=== PATIENT | female | born 1945 | race Caucasian/White ===

== ENCOUNTER 2016-07-12 11:35 | Outpatient (CLI) | payer OTHER | END 2016-07-12 11:36 | disposition home or self-care (01) | LOC: AMBL 11:35 | PROVIDERS: ATTEND Emergency Medicine | DX: M25.552 Pain in left hip (principal); M25.511 Pain in right shoulder; M25.562 Pain in left knee; W01.0XXA Fall on same level from slipping, tripping and stumbling without subsequent striking against object, initial encounter ==

== ENCOUNTER 2016-07-13 04:38 | Outpatient (CLI) | payer OTHER ==
[2016-07-14 00:34] VITALS: BMI 25.7
== END 2016-07-13 04:39 | disposition home or self-care (01) ==
LOC: AMBL 04:38
PROVIDERS: ATTEND Family Medicine
DX: M54.5 Low back pain (principal); R29.6 Repeated falls; W19.XXXA Unspecified fall, initial encounter

== ENCOUNTER 2016-07-13 04:55 | Emergency (ER) | payer OTHER ==
[2016-07-13 05:24] VITALS: BP 130/86; TEMP 98.4; BMI 25.7
--- NOTE | 2016-07-13 05:50 | CT ---
Exam: CT of the pelvis without contrast History: Fall with injury and pain Technique: [address] of the bony pelvis with multiplanar reformations FINDINGS: The pelvic ring is intact. The femoral hips are intact. Mild, symmetric bilateral hip o steoarthritic change the bones are overall demineralized. Prior lumbar surgery. Prior ventral abdo sherry repair with mesh in place. No acute pelvic visceral abnormalities are seen. Prior hysterecto my. Impression: 1. No acute findings of the bony pelvis or pelvic viscera.
--- NOTE | 2016-07-13 05:54 | CT ---
Exam: CT lumbar spine without contrast History: Fall with injury and pain Technique: [address] lumbar spine with multiplanar reformations FINDINGS: The lumbar spine shows normal alignment. vertebral body height is maintained. Prior fus ion L3 - L5. Multilevel endplate concavity deformities unchanged from 09/11/2013. Lumbar hardware is intact without evidence of loosening or olga-hardware fracture. The sacrum is intact. No immedi ate paravertebral soft tissue abnormalities. Atherosclerotic calcification of the aorta. There is a incidental 8 cm right renal cyst. Impression: 1. No acute abnormality of the lumbar spine 2. Multilevel endplate insufficiency concavity deformities are unchanged from 09/11/2013.
--- NOTE | 2016-07-13 06:17 | ED.PDOC ---
General ED Provider: Dr. SHILPA LAIRD-ER Chief Complaint: Fall Stated Complaint: i fell--my kacey raymond Time Seen by Physician: 05:15 Mode of Arrival: Ambulance Information Source: Patient Exam Limitations: No limitations Primary Care Provider: Joaquín MELARA Nursing and Triage Documentation Reviewed and Agree: Yes Musculoskeletal Complaint Exam - Back Pain Complaint/Exam Mechanism of Injury: Reports: Trauma Onset/Duration: one hour Symptoms Are: Still present Timing: Constant Episodes Lasting: Minutes Initial Severity: Mild Current Severity: Mild Location: Reports: Discrete (lumbar spine) Character: Reports: Dull, Aching Aggravating: Reports: Movements, Lifting, Bending, Walking Alleviating: Reports: None Associated Signs and Symptoms: Denies: Swelling, Redness, Bruising, Fever, Weakness, Numbness, Tingling, Abdominal pain, Flank pain, Bladder incontinence, Bowel incontinence, Weight loss, Pain with weight bearing Related History: Reports: Previous back injury Focal Tenderness: Yes Paraspinal Muscle Tenderness: Yes Paraspinal Muscle Spasm: No Scoliosis: No Lordosis: No Kyphosis: No SLR Test: Right Negative, Left Negative Hip Motion Testing Pain: Right Negative, Left Negative Focal Weakness: Present: None Focal Sensory Loss: Present: None Gait: Present: Abnormal Differential Diagnoses: Fracture, Herniated Disk Review of Systems - Review Of Systems Constitutional: Reports: No symptoms Eyes: Reports: No symptoms Ears, Nose, Mouth, Throat: Reports: No symptoms Respiratory: Reports: No symptoms Cardiac: Reports: No symptoms GI: Reports: No symptoms : Reports: No symptoms Musculoskeletal: Reports: Back pain Skin: Reports: No symptoms Neurological: Reports: No symptoms Endocrine: Reports: No symptoms Hematologic/Lymphatic: Reports: No symptoms All Other Systems: Reviewed and Negative Past Medical History - Past Medical History Previously Healthy: No Endocrine: Reports: None Cardiovascular: Reports: Hypertension Respiratory: Reports: None Hematological: Reports: None Gastrointestinal: Reports: None Genitourinary: Reports: None Neuro/Psych: Reports: None Musculoskeletal: Reports: Arthritis, Back Pain Cancer: Reports: None Last Menstrual Period: PT HAS HAD HYSTERECTOMY - Surgical History General Surgical History: Reports: None - Family History Family History: Reports: None - Social History Smoking Status: Never smoker Hx Substance Use: No Alcohol Screening: None Lives: With family - Immunizations Tetanus Shot up to Date: Yes Physical Exam - Physical Exam Appearance: Well-appearing, No pain distress, Well-nourished Pain Distress: Mild Eyes: KAYLEEN, EOMI, Conjunctiva clear ENT: Ears normal, Nose normal, Oropharynx normal Neck: Supple Respiratory: Airway patent, Breath sounds clear, Breath sounds equal, Respirations nonlabored Cardiovascular: RRR, Pulses normal, No rub, No murmur GI/: Soft, Nontender, No masses, Bowel sounds normal, No Organomegaly Musculoskeletal: Limited ROM Skin: Warm, Dry, Normal color Neurological: Sensation intact, Motor intact, Reflexes intact, Cranial nerves intact, Alert, Oriented Psychiatric: Affect appropriate Interpretation - Radiology Interpretation Radiology Interpretation By: Radiologist Radiology Results: Negative Exam Interpreted: CT Scan Re-Evaluation - Re-Evaluation Time of Re-Evaluation: 06:17 Status: Improved Vital Signs Stable: Yes Pain Level: 1 Appearance: NAD Lungs: Clear Skin: Warm and Dry Neuro: Alert and Oriented X3 CV: RRR Critical Care Note - Critical Care Note Total Time (mins): 0 Course - Course Orders, Labs, Meds: Orders Category Date Time Status CT LUMBAR SPINE W/O CONTRAST Stat RADS 07/13/16 05:[address] PELVIS W/O CONTRAST Stat RADS 07/13/16 05:01 Completed Vital Signs: Temp Pulse Resp BP Pulse Ox 07/13/16 04:56 98.4 F 84 20 130/86 95 Departure - Departure Time of Disposition: 06:17 Disposition: HOME SELF-CARE Discharge Problem: Low back pain Qualifiers: Chronicity: unspecified Back pain laterality: unspecified Sciatica presence: without sciatica Qualifier Code: (M54.5) Low back pain Instructions: Back Pain (ED) Condition: Good Pt referred to PMD for follow-up: Yes Additional Instructions: f/u wit pcp Allergies/Adverse Reactions: Allergies heparin Allergy (Severe, Unverified 05/24/16 15:25) fever codeine Adverse Reaction (Verified 01/29/15 13:31) lisinopril Adverse Reaction (Verified 01/29/15 13:31) Sulfa (Sulfonamide Antibiotics) Adverse Reaction (Verified 07/13/16 05:24) Home Medications: Ambulatory Orders Calcium Carbonate [Calcium] 600 mg PO BID 01/29/15 Carvedilol 12.5 mg PO BID 01/29/15 Diazepam 5 mg PO Q6HR PRN 01/29/15 Escitalopram Oxalate [Lexapro] 10 mg PO DAILY 01/29/15 Losartan Potassium [Cozaar] 50 mg PO DAILY 01/29/15 Oxycodone-Acetaminophen 10-325 [Percocet 10-325] 1 tab PO Q6H PRN 01/29/15 Disposition Discussed With: Patient
== END 2016-07-13 07:49 | disposition home or self-care (01) ==
LOC: ED 04:55
DX: M54.5 Low back pain (principal); W19.XXXA Unspecified fall, initial encounter
CPT/HCPCS: 99283

== ENCOUNTER 2016-07-13 18:13 | Inpatient (IN) | payer OTHER ==
--- NOTE | 2016-07-13 20:49 | ED.PDOC ---
General ED Provider: Dr. JEANETTE LUNDY Chief Complaint: Knee Pain/Injury Stated Complaint: Patient is a 71 year old female who Fell yesterday and was seen at [facility] ER for pain to left knee, rt arm (Hx rotator cuff surg), face. He was Sent home then fell again this morning landing on her bottom and had to be seen in the ER and Discharged home. She was taken to her PMD Dr Mathews at [facility] who told her and family to return to the ER for admission prior to [place] admission for rehab.She states she has severe left hip, Lower back right knee and right shoulder pain. She lives alone and unabel to care for self and is very weak. Time Seen by Physician: 20:45 Mode of Arrival: Wheelchair Information Source: Patient, Family Exam Limitations: No limitations Primary Care Provider: MARKIE HOLT Seen Within Last 72 Hours for Same Complaint By: ED (This morning and last night at [facility]. ) Nursing and Triage Documentation Reviewed and Agree: Yes Review of Systems - Review Of Systems Constitutional: Reports: Weakness Eyes: Reports: No symptoms Ears, Nose, Mouth, Throat: Reports: No symptoms Respiratory: Reports: No symptoms Cardiac: Reports: No symptoms GI: Reports: No symptoms : Reports: No symptoms Musculoskeletal: Reports: Back pain, Joint pain (Left shoulder, Left knee ), Muscle pain, Muscle stiffness Skin: Reports: Bruising Neurological: Reports: Anxiety Endocrine: Reports: No symptoms Hematologic/Lymphatic: Reports: No symptoms All Other Systems: Reviewed and Negative Past Medical History - Past Medical History Previously Healthy: No Endocrine: Reports: None Cardiovascular: Reports: Hypertension Respiratory: Reports: None Hematological: Reports: None Gastrointestinal: Reports: None Genitourinary: Reports: None Neuro/Psych: Reports: None Musculoskeletal: Reports: Arthritis, Back Pain Cancer: Reports: None Last Menstrual Period: unknown - Surgical History General Surgical History: Reports: Pacemaker, Orthopedic (Right knee and Right shoulder replacement.), Back Surgery - Family History Family History: Reports: None - Social History Smoking Status: Never smoker Hx Substance Use: No Alcohol Screening: None Physical Exam - Physical Exam Appearance: Ill-appearing Ill-appearing: Mild Pain Distress: Severe Eyes: KAYLEEN, EOMI, Conjunctiva clear ENT: Ears normal, Nose normal, Oropharynx normal Neck: Supple Respiratory: Airway patent, Breath sounds clear, Breath sounds equal, Respirations nonlabored Cardiovascular: RRR, Pulses normal, No rub, No murmur GI/: Soft, Nontender, No masses, Bowel sounds normal, No Organomegaly Musculoskeletal: Limited ROM (on the left Knee and right shoulder ) Skin: Warm, Dry, Normal color Neurological: Sensation intact, Motor intact, Reflexes intact, Cranial nerves intact, Alert, Oriented Interpretation - Radiology Interpretation Radiology Interpretation By: Radiologist Radiology Results: Negative Exam Interpreted: Portable CXR, CT Scan (atrophy) - EKG Interpretation Time of EKG #1: 22:28 Interpretation: Electronic Paced Rhytym Re-Evaluation - Re-Evaluation Time of Re-Evaluation: 22:18 Vital Signs Stable: Yes (BP 112/55) Physician Notification - Case Discussed Physician Notified: Dr May Time of Notification: 22:15 (Get CT head and Chest x ray and Orthostatics and call before admission. ) Physician Notified: Dr May Time of Notification: 23:30 (Ok to admit ) Critical Care Note - Critical Care Note Total Time (mins): 0 Course - Course Hematology/Chemistry: 07/13/16 20:55 07/13/16 20:55 Orders, Labs, Meds: Lab Review 07/13/16 07/13/16 07/13/16 20:55 21:00 21:04 WBC 2.94 L RBC 3.75 L Hgb 11.7 L Hct 34.9 L MCV 93.1 MCH 31.2 H MCHC 33.5 RDW Coeff of Trudy 15.2 H Plt Count 57 L Immature Gran % (Auto) 0.3 Neut % (Auto) 50.7 Lymph % (Auto) 32.7 Grady % (Auto) 12.9 H Eos % (Auto) 3.1 Baso % (Auto) 0.3 Immature Gran # (Auto) 0.0 Neut # 1.5 L Lymph # 1.0 Grady # 0.4 Eos # 0.1 Baso # 0.0 Sodium 141 Potassium 4.1 Chloride 109 H Carbon Dioxide 25 Anion Gap 11.1 BUN 14 Creatinine 0.92 Estimated GFR (MDRD) 60.00 BUN/Creatinine Ratio 15.21 Glucose 99 Calcium 9.5 Total Bilirubin 0.82 AST 24 ALT 19 Alkaline Phosphatase 53 Total Creatine Kinase 52 Troponin I 0.0170 Total Protein 6.3 Albumin 3.1 L Globulin 3.2 Albumin/Globulin Ratio 0.97 Urine Color Yellow Urine Clarity Clear Urine pH 5.0 Ur Specific [place] 1.025 Urine Protein Negative Urine Glucose (UA) Negative Urine Ketones Negative Urine Blood Negative Urine Nitrite Negative Urine Bilirubin Negative Urine Urobilinogen 1.0 Ur Leukocyte Esterase Trace Urine Microscopic RBC 2-5 Urine Microscopic WBC 0-2 Ur Squamous Epith Cells 2-5 Hyaline Casts 2-5 Urine Mucus Trace Orders Category Date Time Status ADMIT PATIENT INPATIENT .TO MEDSURG (MONITORED BED) ADMISSION 07/13/16 22: 19 Active EKG-(IP & OP ONLY) Routine CARDIO 07/13/16 22:24 Completed ACTIVITY .BR with BRP CARE 07/13/16 22:21 Active CASE MANAGEMENT CONSULT ONCE CARE 07/13/16 22:19 Active INTAKE & OUTPUT Q8HR CARE 07/13/16 22:19 Active TELEMETRY MONITORING TELE CARE 07/13/16 22:20 Active VITAL SIGNS Q4HR CARE 07/13/16 22:20 Active REGULAR DIET DIETARY 07/13/16 Breakfast Ordered ED IV/MEDIPORT/POWERPORT .ONCE EMERGENCY 07/13/16 20:49 Active Orthostatic Vital Signs [ED ORTHOSTATIC VITAL SIGNS] 2- EMERGENCY 07/13/16 22: 14 Active 4XD BASIC METABOLIC PANEL DAILY@0600 LAB 07/14/16 06:00 Ordered BASIC METABOLIC PANEL DAILY@0600 LAB 07/15/16 06:00 Ordered BASIC METABOLIC PANEL DAILY@0600 LAB 07/16/16 06:00 Ordered BASIC METABOLIC PANEL DAILY@0600 LAB 07/17/16 06:00 Ordered BASIC METABOLIC PANEL DAILY@0600 LAB 07/18/16 06:00 Ordered BASIC METABOLIC PANEL DAILY@0600 LAB 07/19/16 06:00 Ordered BASIC METABOLIC PANEL DAILY@0600 LAB 07/20/16 06:00 Ordered BASIC METABOLIC PANEL DAILY@0600 LAB 07/21/16 06:00 Ordered BASIC METABOLIC PANEL DAILY@0600 LAB 07/22/16 06:00 Ordered BASIC METABOLIC PANEL DAILY@0600 LAB 07/23/16 06:00 Ordered BASIC METABOLIC PANEL DAILY@0600 LAB 07/24/16 06:00 Ordered BASIC METABOLIC PANEL DAILY@0600 LAB 07/25/16 06:00 Ordered BASIC METABOLIC PANEL DAILY@0600 LAB 07/26/16 06:00 Ordered BASIC METABOLIC PANEL DAILY@0600 LAB 07/27/16 06:00 Ordered BASIC METABOLIC PANEL DAILY@0600 LAB 07/28/16 06:00 Ordered BASIC METABOLIC PANEL DAILY@0600 LAB 07/29/16 06:00 Ordered BASIC METABOLIC PANEL DAILY@0600 LAB 07/30/16 06:00 Ordered BASIC METABOLIC PANEL DAILY@0600 LAB 07/31/16 06:00 Ordered BASIC METABOLIC PANEL DAILY@0600 LAB 08/01/16 06:00 Ordered BASIC METABOLIC PANEL DAILY@0600 LAB 08/02/16 06:00 Ordered CBC W/ AUTO DIFF DAILY@0600 LAB 07/14/16 06:00 Ordered CBC W/ AUTO DIFF DAILY@0600 LAB 07/15/16 06:00 Ordered CBC W/ AUTO DIFF DAILY@0600 LAB 07/16/16 06:00 Ordered CBC W/ AUTO DIFF DAILY@0600 LAB 07/17/16 06:00 Ordered CBC W/ AUTO DIFF DAILY@0600 LAB 07/18/16 06:00 Ordered CBC W/ AUTO DIFF DAILY@0600 LAB 07/19/16 06:00 Ordered CBC W/ AUTO DIFF DAILY@0600 LAB 07/20/16 06:00 Ordered CBC W/ AUTO DIFF DAILY@0600 LAB 07/21/16 06:00 Ordered CBC W/ AUTO DIFF DAILY@0600 LAB 07/22/16 06:00 Ordered CBC W/ AUTO DIFF DAILY@0600 LAB 07/23/16 06:00 Ordered CBC W/ AUTO DIFF DAILY@0600 LAB 07/24/16 06:00 Ordered CBC W/ AUTO DIFF DAILY@0600 LAB 07/25/16 06:00 Ordered CBC W/ AUTO DIFF DAILY@0600 LAB 07/26/16 06:00 Ordered CBC W/ AUTO DIFF DAILY@0600 LAB 07/27/16 06:00 Ordered CBC W/ AUTO DIFF DAILY@0600 LAB 07/28/16 06:00 Ordered CBC W/ AUTO DIFF DAILY@0600 LAB 07/29/16 06:00 Ordered CBC W/ AUTO DIFF DAILY@0600 LAB 07/30/16 06:00 Ordered CBC W/ AUTO DIFF DAILY@0600 LAB 07/31/16 06:00 Ordered CBC W/ AUTO DIFF DAILY@0600 LAB 08/01/16 06:00 Ordered CBC W/ AUTO DIFF DAILY@0600 LAB 08/02/16 06:00 Ordered CBC W/ AUTO DIFF Stat LAB 07/13/16 20:55 Completed CK [CREATINE KINASE] Stat LAB 07/13/16 21:00 Completed COMPREHENSIVE METABOLIC PANEL Stat LAB 07/13/16 20:55 Completed TROPONIN I Stat LAB 07/13/16 21:00 Completed URINALYSIS C & S IF INDICATED Stat LAB 07/13/16 21:04 Completed 0.9 % Sodium Chloride [Saline Flush] MEDS 07/13/16 20:49 Ordered 1 syr IVF PRN PRN Calcium Carbonate [Calcium] MEDS 07/14/16 09:00 Ordered 600 mg PO BID Carvedilol [Coreg] MEDS 07/14/16 09:00 Ordered 3.125 mg PO BID Diazepam [Valium] MEDS 07/14/16 09:00 Ordered 2 mg PO BID Enoxaparin Sodium [Lovenox] MEDS 07/14/16 09:00 Ordered 40 mg SUBCUT DAILY Escitalopram Oxalate [Lexapro] MEDS 07/14/16 09:00 Ordered 10 mg PO DAILY Hydrocodone Bit/Acetaminophen [[place] 5-325] MEDS 07/13/16 22:25 Ordered DOSE tab PO TID PRN Hydroxychloroquine Sulfate MEDS 07/14/16 09:00 Ordered 200 mg PO BID Morphine Sulfate [Morphine 2 mg/ml Syringe] MEDS 07/13/16 22:19 Ordered 2 mg IVP Q4H PRN Ondansetron HCl/Pf [Zofran 4 mg/2 ml] MEDS 07/13/16 22:19 Ordered 4 mg IVP Q6H PRN Sodium Chloride 0.9% [Sodium Chloride] 1,000 ml MEDS 07/13/16 22:30 Ordered IV 75 mls/hr RESUSCITATION STATUS Routine OTHERS 07/13/16 22:19 Ordered CHEST, 1V AP ONLY Stat RADS 07/13/16 22:[address] HEAD W/O CONTRAST Stat RADS 07/13/16 22:17 Completed OT CONSULTATION Routine THERAPIES 07/13/16 Ordered PT CONSULT Routine THERAPIES 07/13/16 Ordered Medications Generic Name Dose Route Start Last Admin Trade Name Freq PRN Reason Stop Dose Admin Acetaminophen/Hydrocodone Bitart tab 07/13/16 22:25 [place] 5-325 PO TID PRN MODERATE PAIN Carvedilol 3.125 mg 07/14/16 09:00 Coreg PO BID ANNETTE Diazepam 2 mg 07/14/16 09:00 Valium PO BID ANNETTE Enoxaparin Sodium 40 mg 07/14/16 09:00 Lovenox SUBCUT DAILY [facility] Escitalopram Oxalate 10 mg 07/14/16 09:00 Lexapro PO DAILY [facility] Sodium Chloride 1,000 mls @ 75 mls/hr 07/13/16 22:30 Sodium Chloride IV .[id number] ANNETTE Morphine Sulfate 2 mg 07/13/16 22:19 Morphine 2 Mg/Ml Syringe IVP Q4H PRN Severe Pain Non-Formulary Medication 200 mg 07/14/16 09:00 Hydroxychloroquine Sulfate PO BID ANNETTE Non-Formulary Medication 600 mg 07/14/16 09:00 Calcium Carbonate [Calcium] PO BID [facility] Ondansetron HCl 4 mg 07/13/16 22:19 Zofran 4 Mg/2 Ml IVP Q6H PRN Nausea / Vomiting Sodium Chloride 1 syr 07/13/16 20:49 Saline Flush IVF PRN PRN To flush IV Vital Signs: Temp Pulse Resp BP Pulse Ox 07/13/16 22:21 103/58 L 07/13/16 18:16 98.2 F 79 20 93/59 L 95 Departure - Departure Time of Disposition: 23:30 Disposition: HOME SELF-CARE Discharge Problem: Knee pain, Weakness generalized Falls Qualifiers: Encounter type: initial encounter Qualifier Code: (W19.XXXA) Unspecified fall, initial encounter Shoulder pain, right Qualifiers: Chronicity: acute Qualifier Code: (M25.511) Pain in right shoulder Condition: Fair Pt referred to PMD for follow-up: No (Admitted ) Allergies/Adverse Reactions: Allergies heparin Allergy (Severe, Unverified 05/24/16 15:25) fever codeine Adverse Reaction (Verified 01/29/15 13:31) lisinopril Adverse Reaction (Verified 01/29/15 13:31) Sulfa (Sulfonamide Antibiotics) Adverse Reaction (Verified 07/13/16 05:24) Home Medications: Ambulatory Orders Calcium Carbonate [Calcium] 600 mg PO BID 01/29/15 Carvedilol 3.125 mg PO BID 01/29/15 Escitalopram Oxalate [Lexapro] 10 mg PO DAILY 01/29/15 Losartan Potassium [Cozaar] 50 mg PO BID 01/29/15 Amitriptyline HCl 10 mg PO QPM 07/13/16 Diazepam 2 mg PO BID 07/13/16 Furosemide [Lasix] 20 mg PO DAILY 07/13/16 Hydrocodone Bit/Acetaminophen [[place] 5-325] 5 - 325 mg PO TID PRN 07/13/16 Hydroxychloroquine Sulfate [Plaquenil] 200 mg PO BID 07/13/16 Hydroxyzine HCl 25 mg PO DAILY PRN 07/13/16 Spironolactone 12.5 mg PO DAILY 07/13/16 Disposition Discussed With: Patient, Family
[2016-07-13 21:02] LABS: BASOPHILS % (AUTO) 0.3 % (0.0-3.0); EOSINOPHILS # (AUTO) 0.1 K/ul (0.0-0.7); EOSINOPHILS % (AUTO) 3.1 % (0.0-7.0); HEMATOCRIT 34.9 % (37.0-47.0); HEMOGLOBIN 11.7 g/dl (12.0-16.0); IMMATURE GRANULOCYTE % (AUTO) 0.3 % (0.0-5.0); LYMPHOCYTES % (AUTO) 32.7 (10.0-50.0); MEAN CORPUSCULAR HEMOGLOBIN 31.2 pg (27.0-31.0); MEAN CORPUSCULAR HGB CONC 33.5 (31.8-35.4); MEAN CORPUSCULAR VOLUME 93.1 fl (81.0-99.0); MONOCYTES # (AUTO) 0.4 K/uL (0.4-2.0); MONOCYTES % (AUTO) 12.9 (0-10); NEUTROPHILS # (AUTO) 1.5 K/ul (2.0-6.9); NEUTROPHILS % (AUTO) 50.7; PLATELET COUNT 57 10^3/uL (140-440); RED BLOOD COUNT 3.75 10^6/ul (4.20-5.40); WHITE BLOOD COUNT 2.94 K/ul (4.6-10.2)
[2016-07-13 21:09] LABS: BILIRUBIN,URINE Negative (NEGATIVE); KETONES,URINE Negative (NEGATIVE); LEUKOCYTE ESTERASE ,URINE Trace (NEGATIVE); NITRITE,URINE Negative (NEGATIVE); PROTEIN,URINE Negative (NEGATIVE); URINE, BLOOD Negative (NEGATIVE)
[2016-07-13 21:10] LABS: ADD URINE MICROSCOPIC YES
[2016-07-13 21:22] LABS: ALBUMIN 3.1 g/dL (3.4-5.0); ALBUMIN/GLOBULIN RATIO 0.97; ANION GAP 11.1; BILIRUBIN,TOTAL 0.82 mg/dL (0.00-1.20); BUN/CREATININE RATIO 15.21; CALCIUM 9.5 mg/dL (8.2-10.2); CREATININE 0.92 mg/dL (0.60-1.30); POTASSIUM 4.1 mmol/L (3.5-5.10); TOTAL PROTEIN 6.3 g/dL (5.8-8.1)
[2016-07-13] MEDS ORDERED: MORPHINE 2 MG/ML SYRINGE IVP PRN (22:19)
[2016-07-13] MEDS ORDERED: ZOFRAN 4 MG/2 ML IVP PRN (22:19)
[2016-07-13] MEDS ORDERED: SODIUM CHLORIDE 1,000 ML IV SCH (22:30)
--- NOTE | 2016-07-13 22:53 | DI ---
EXAM: Chest, single view, 07/13/2016 HISTORY: Fall COMPARISON: 04/06/2016 FINDINGS / IMPRESSION: Left-sided pacer device is in place. Right shoulder arthroplasty is in plac e. Cardiomediastinal contours appear moderately enlarged. There is no focal pulmonary consolidation. No pneumothorax. Blunting of the left lateral costophre hilda angle may be due to atelectasis and/or small pleural effusion. The visualized osseous structures appear grossly intact.
[2016-07-13 22:58] LABS: TROPONIN I 0.017 ng/ml (0.0000-0.4000)
--- NOTE | 2016-07-13 23:22 | CT ---
EXAM: CT scan brain without contrast HISTORY: Fall COMPARISON: None. FINDINGS: Contiguous axial images obtained from the skull base to the convexities without contrast utilizing 5-mm collimation. Sagittal and coronal reconstructions were imaged reviewed.. The ventri cles and CSF spaces are prominent by with age appropriate atrophy. There is periventricular hypoden sity noted compatible with chronic microvascular disease.. Visualized paranasal sinuses and mastoid air cells are clear. Atherosclerotic changes are seen involving internal carotids at the level of the cavernous sinus. IMPRESSION: Age appropriate atrophy with chronic microvascular disease. ASVD.
[2016-07-14 00:34] VITALS: BMI 25.7
[2016-07-14 07:13] LABS: BASOPHILS % (AUTO) 0.9 % (0.0-3.0); EOSINOPHILS # (AUTO) 0.1 K/ul (0.0-0.7); EOSINOPHILS % (AUTO) 3.3 % (0.0-7.0); HEMATOCRIT 31.1 % (37.0-47.0); HEMOGLOBIN 10.4 g/dl (12.0-16.0); IMMATURE GRANULOCYTE % (AUTO) 0.5 % (0.0-5.0); LYMPHOCYTES # (AUTO) 0.9 K/uL (0.60-3.4); LYMPHOCYTES % (AUTO) 40.8 (10.0-50.0); MEAN CORPUSCULAR HEMOGLOBIN 31.2 pg (27.0-31.0); MEAN CORPUSCULAR HGB CONC 33.4 (31.8-35.4); MEAN CORPUSCULAR VOLUME 93.4 fl (81.0-99.0); MONOCYTES # (AUTO) 0.3 K/uL (0.4-2.0); MONOCYTES % (AUTO) 13.7 (0-10); NEUTROPHILS # (AUTO) 0.9 K/ul (2.0-6.9); NEUTROPHILS % (AUTO) 40.8; PLATELET COUNT 52 10^3/uL (140-440); RED BLOOD COUNT 3.33 10^6/ul (4.20-5.40); WHITE BLOOD COUNT 2.11 K/ul (4.6-10.2)
[2016-07-14 07:27] LABS: ANION GAP 9.9; BUN/CREATININE RATIO 18.18; CALCIUM 8.9 mg/dL (8.2-10.2); CREATININE 0.77 mg/dL (0.60-1.30); POTASSIUM 3.9 mmol/L (3.5-5.10)
[2016-07-14] MEDS ORDERED: NON-FORMULARY MEDICATION (Hydroxychloroquine Sulfate 200 MG) PO SCH (09:00)
[2016-07-14] MEDS ORDERED: NON-FORMULARY MEDICATION (Calcium Carbonate [Calcium] 600 MG) PO SCH ×22 (09:00)
[2016-07-14] MEDS ORDERED: COREG PO SCH (09:00)
[2016-07-14] MEDS: CALCIUM 500 + VIT D 200 MG TABLET PO SCH ×2 (09:04→21:10)
[2016-07-14] MEDS: COREG PO SCH ×2 (09:05→21:10)
[2016-07-14] MEDS: LEXAPRO PO SCH (09:05)
[2016-07-14] MEDS: LOVENOX SUBCUT SCH (09:05)
[2016-07-14] MEDS: PLAQUENIL PO SCH ×2 (09:05→21:09)
[2016-07-14] MEDS: VALIUM PO SCH ×2 (09:05→21:09)
--- NOTE | 2016-07-14 10:34 | RS.OTINEVL ---
Subjective - Patient information Date of Evaluation: 07/14/16 Date of Arrival on Unit: 07/13/16 Admitted From:: Home Usual Living Arrangement: Alone Living Arrangement Comments: Pt reports she just moved to [facility] apartments and lives with her dog Whiskers. Home Environment: Apartment Medical History: Arthritis, Cancer Medical History Comments:: Rheumatoid, osteoarthritis Surgical History Comments:: Pacemaker, Right shoulder surgery Subjective Information/ Patient Comments:: "This is the first time I have been able to walk on this knee." "It is so swollen and painful." - Level of function Prior to this admission, the patient could do the following:: Independent Selfcare, Independent ADL's Abilities prior to this admission: Pt was walking with her walker, transfering to chair. Pt was living at home with her dog alone. Current Level of Function: Partially Dependent Current Equipment Used at Home: rollator, straight cane Pain Assessment - Pain Pain Score: 8 Side: left Pain Location Body Site: Knee Pain Aggravating Factors: ADL's, Changing Position, Exercise/Activity, Standing , Walking Pain Alleviating Factors: Ice, Medication, Exercise Interventions - Objective Patient Orientation: Person, Place, Situation Current Interventions: IV's Observation: Pt has RA and muscle weakness that is limiting her safety of mobility. Pt uses a rolling walker to ambulate. Pt has kojo of left knee and a bruise to the Right side of her head. Interventions - ROM Right Upper Extremity AROM: Marked limitation Left Upper Extremity AROM: Marked limitation - Strength Right Upper Extremity Strength: Mild Weakness Left Upper Extremity Strength: Mild Weakness - Sensation Right Upper Extremity Sensation: Intact/Normal Left Upper Extremity Sensation: Intact/Normal Balance - Sitting Balance Static Sitting Balance: Good Dynamic Sitting Balance: Fair - Standing Balance Static Standing Balance: Poor Dynamic Standing Balance: Poor - Comments Balance Assessment Comments: Pt has had numerous falls and weakness. Patient walks with a rolling walker at all times. ADL Skills - Self Feeding Self Feeding: Independent - Grooming Grooming: Min Assist - Bathing Bathing LE: Max Assist - Dressing Dressing UE: Independent Dressing LE: Max Assist - Toilet Management Toileting Management: Min Assist Functional Mobility - Bed Mobility Rolling R/L: CGA Scooting: CGA Supine to Sit: CGA Sit to Supine: Min Assist - Transfers Sit to Stand: Min Assist Stand to Sit: CGA Stand Pivot Transfers: Min Assist - Ambulation Weight Bearing Status: FWB Assistive Device Used: Rolling Walker Assistance needed with Ambulation: Min Assist Comments:: Pt wearging a Left knee brace. - Safety Awareness Safety Awareness: Fair Additional Treatment Performed - Additional units charged ADL: 15 - Time with patient Total treatment time: 25 Activities Patient Interests:: Visiting/Socializing Patient Education Patient Education: Body/Joint mechanics, Home Exercise Program, Home Safety, Education of Plan of Care Teaching Recipient: Patient Teaching Methods: Discussion Assessment Problem List:: Decreased level of function, Requires training/education, Weakness, Pain limits previous level of function Rehab Potential: Good Further Therapy Indicated?: Yes Short Term Goals - Goals GOAL 1: Pt to increase standing ADLS to 10 minutes with rests PRN. Goal to be met by: 07/21/16 GOAL 2: Pt to increase BUE strength to 4-/5. Goal to be met by: 07/21/16 GOAL 3: Pt to be Minimal assist with bathing. Goal to be met by: 07/21/16 Handbook Writer Goals GOAL 1: Pt to tolerate standing ADLS 15-20 minutes. Goal to be met by: 07/28/16 GOAL 2: Pt to increase BUE strength to 4/5. Goal to be met by: 07/28/16 GOAL 3: Pt to be mod-Ind. with bathing. Goal to be met by: 07/28/16 Plan Plan of Care: Therapeutic EX, Neuromuscular Re-Educ, Therapeutic Activity, Self- Care/Home Management Frequency of Treatment: 1-2 X day, as tolerated Duration of Treatment: 2 Weeks Anticipated Discharge Destination: Home
[2016-07-14] MEDS: INFUVITE ADULT 10 ML in D5%-1/4NS-KCL 20 MEQ/L IV SOL 1,000 ML IV SCH ×2 (12:23→23:36)
--- NOTE | 2016-07-14 15:45 | CT ---
EXAM: CT left knee without contra HISTORY: Knee pain COMPARISON: None TECHNIQUE: CT left knee performed without intravenous contrast. Coronal and sagittal reformatted i mages obtained. FINDINGS: There is large lipohemarthrosis. The bones are markedly demineralized. There is a nondis placed lucency in the lateral tibial spine region, best seen axial image 54 and coronal image 39, mo st consistent with nondisplaced fracture. There are tricompartmental osteophytes. There is severe n arrowing of the medial compartment and mild to moderate narrowing of the lateral compartment. There is well marginated ossification near the medial compartment may be due to old trauma or degenerative . There is atherosclerosis. IMPRESSION: 1. Nondisplaced fracture of the lateral aspect tibial plateau. 2. Large lipohemarthrosis. 3. 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 4. Markedly demineralized bones.
--- NOTE | 2016-07-14 15:53 | US ---
Examination: Moreno-scale and color Doppler imaging performed in real time of the left lower extremit y venous vasculature. Comparison: None available. Reason for study: Left knee swelling. FINDINGS: There is spontaneous flow with respiratory augmentation and vascular compression seen in the left common femoral, greater saphenous, profunda, superficial femoral, popliteal, peroneal, post erior tibial, and anterior tibial veins. Impression: No ultrasonographic evidence of deep venous thrombosis in the left lower extremity.
[2016-07-14] MEDS ORDERED: INFUVITE ADULT IV ONE (22:12)
[2016-07-14] MEDS: NORCO 5-325 PO PRN (22:19)
[2016-07-15] MEDS: INFUVITE ADULT 10 ML in D5%-1/4NS-KCL 20 MEQ/L IV SOL 1,000 ML IV SCH ×2 (00:44→12:58)
[2016-07-15 07:37] LABS: BASOPHILS % (AUTO) 0.6 % (0.0-3.0); EOSINOPHILS # (AUTO) 0.1 K/ul (0.0-0.7); EOSINOPHILS % (AUTO) 4.3 % (0.0-7.0); HEMATOCRIT 29.2 % (37.0-47.0); HEMOGLOBIN 9.7 g/dl (12.0-16.0); IMMATURE GRANULOCYTE % (AUTO) 0.6 % (0.0-5.0); LYMPHOCYTES # (AUTO) 0.8 K/uL (0.60-3.4); LYMPHOCYTES % (AUTO) 48.5 (10.0-50.0); MEAN CORPUSCULAR HEMOGLOBIN 31.1 pg (27.0-31.0); MEAN CORPUSCULAR HGB CONC 33.2 (31.8-35.4); MEAN CORPUSCULAR VOLUME 93.6 fl (81.0-99.0); MONOCYTES # (AUTO) 0.2 K/uL (0.4-2.0); MONOCYTES % (AUTO) 12.9 (0-10); NEUTROPHILS # (AUTO) 0.5 K/ul (2.0-6.9); NEUTROPHILS % (AUTO) 33.1; PLATELET COUNT 51 10^3/uL (140-440); RED BLOOD COUNT 3.12 10^6/ul (4.20-5.40)
[2016-07-15 07:54] LABS: WHITE BLOOD COUNT 1.63 K/ul (4.6-10.2)
[2016-07-15 08:02] LABS: ANION GAP 9.4; BUN/CREATININE RATIO 15.78; CREATININE 0.76 mg/dL (0.60-1.30); POTASSIUM 4.4 mmol/L (3.5-5.10)
[2016-07-15] MEDS: CALCIUM 500 + VIT D 200 MG TABLET PO SCH ×2 (10:12→20:13)
[2016-07-15] MEDS: LOVENOX SUBCUT SCH (10:13)
[2016-07-15] MEDS: LEXAPRO PO SCH (10:13)
[2016-07-15] MEDS: COREG PO SCH ×2 (10:13→20:13)
[2016-07-15] MEDS: PLAQUENIL PO SCH ×2 (10:14→20:13)
[2016-07-15] MEDS: VALIUM PO SCH ×2 (10:15→20:13)
[2016-07-15] MEDS: NORCO 5-325 PO PRN (11:00)
[2016-07-15] MEDS ORDERED: INFUVITE ADULT IV ONE (12:43)
[2016-07-15 18:14] VITALS: BP 126/77; TEMP 97.9
--- NOTE | 2016-07-17 15:25 | PN ---
DATE OF VISIT: 07/15/16 The patient today is alert, pale, but no respiratory distress. NECK: No masses. No bruit. LEGS: Markedly edematous on the left side, including the knee and markedly tender to touch. LUNGS: Still has diminished breath sounds in both sides with rales at the bases. HEART: Audible and regular most of the time. ABDOMEN: Slightly protuberant, tympanitic. Bowel sounds are active. No masses palpable. X-ray of the left knee has shown a tibial plateau fracture, lateral, nondisplaced. This patient had several operations, knee, right shoulder, back and trying to find the names of the doctors who had operated. This patient also had pancytopenia on admission and progressed. The patient seemed to have a history of chronic anemia. I am not certain whether this patient has a myelodysplastic syndrome or a leukemia. MTDD
--- NOTE | 2016-07-17 15:27 | PN ---
DATE OF VISIT: 07/14/16 The patient is alert and responsive. She has movement of all extremities. She is slightly pale, but not dyspneic, nor tachypneic. LUNGS: She does have rales at the bases with no wheezing. HEART: Audible and and irregular. This patient has a pacemaker. She had previous lumbar surgery, as well as left shoulder surgery fo a rotator cuff problem. The operation may have been done at [facility]. I had a conversation with her son and he is not sure which hospital and the name of the doctor. He promised that he would try to find out who the doctor was and where. I told him that I would like to know those particulars so I can call the doctor and refer her to them. She does have a fracture involving the left knee. I had reviewed the imaging studies done at [facility]. There was no fracture demonstrated, but there was a question about the left knee. The CT done at this facility showed a nondisplaced fracture of the left lateral aspect of the tibial plateau. A large amount of lipohemarthrosis and tricompartmental osteoarthritis with severe osteoarthritis in the medial compartment. Bones markedly demineralized. Venous Doppler studies of the left lower extremity showed no venous thrombosis. Vitamin D level was requested and no results at this time. [facility]
--- NOTE | 2016-07-18 10:34 | HP ---
CHIEF COMPLAINT: Weakness, pain in the left knee and fall times two. SOURCE OF HISTORY: Patient. HISTORY OF PRESENT ILLNESS: The patient claimed that last Sunday about 9 o' clock or there about was trying to put her pants on while sitting on the couch. She slid and rolled over and landed flat on her face from the couch. She was then brought to [facility] emergency room and the work up of consisted of x -rays, chest x-ray, CT scan of the left lower extremity and Ct scan of the cervical spine. The left knee showed moderate hemarthrosis, no definite fracture, tricompartmental osteoarthritic changes and severe osteoporosis with a small amount of subcutaneous emphysema at the tibial plateau anteriorly. Correlate with self injury. The patient was discharged from [facility] to home. The patient lives alone and on 07/13/16, early in the morning about 4 o'clock, trying to get to the bedside commode, she tried four times to get up on the walker and finally did. The patient, however, when trying to get to the commode fell to the floor and landed on her buttock. She was then seen at [facility] emergency room and had x-rays of the pelvis and lumbar spine and was discharged to home. She came back to [facility] emergency room the same day that she was discharged 4:16 in the afternoon of . The emergency room physician contacted me with regards to the patient needing an admission because of weakness. He advised me that x-rays done at this facility earlier, as well as at [facility] did not show any fracture, but he did not do any x-rays of his own. I did advise him to have an x-ray of the chest, as well as CT scan of the head. He did not tell me anything about the physical findings. The reason for admission is weakness and recurrent falls at home and the patient lives alone. The doctor at the emergency room had not mentioned any other abnormal work-up that he had. The patient was then admitted. PAST PERSONAL HISTORY: The patient had a right breast carcinoma and was operated with mastectomy and treated by Dr. Rodríguez. She had been to Dr. Dorsey, Complaint Supervisor in [place], but her pacemaker was inserted by [employer] in [place]. She was known to have anemia and also a low platelet count and had been treated by her family physician, Dr. Hill in [place]. Atrial fibrillation treated with medication, plus a pacemaker, probably defibrillator. Other medical problems consisted of GERD, depression, anxiety, migraine, osteoarthritis. She had a right knee replacement and right shoulder replacement. She mentioned some fractured bones. FAMILY HISTORY: The patient does not know very much about her father's illnesses. Mother was hypertensive. SOCIAL HISTORY: The patient is and resides alone. She never did smoke in her life. Her primary provider is Bria Hill. No alcoholic beverages. MEDICATIONS: Prior to this admission Carvedilol 3.125 mg twice a day Calcium 600 mg twice a day Losartan 50 mg twice a day Lexapro 10 mg daily Hydroxyzine 25 mg daily Plaquenil 200 mg twice a day Amitriptyline 10 mg in the evening Aldactone 12.5 mg daily Lasix 20 mg daily Diazepam 2 mg twice a day Hydrocodone/APAP 5/325 mg one three times a day ALLERGIES: Heparin, Codeine, Lisinopril, Sulfa. REVIEW OF SYSTEMS: CONSTITUTIONAL: We have a 71 year old female who looks older than her chronological age denies any fever or chills, but has some fatigue. She more or less has some generalized weakness. URGENT CARE PHYSICIAN ASSISTANT: This patient has a history of migraines, but does not have any. She had fallen twice in the last three days. She denies any seizure disorder. VISUAL: Denies any double vision, or blurred vision or transient loss of vision. AUDITORY: The patient has diminished hearing, but is able to hear and answer questions correctly. She denies any ringing of the ears or any pain or drainage. RESPIRATORY: The patient has no significant cough and denies any hemoptysis and no shortness of breath at rest. CARDIOVASCULAR: The patient denies any chest pain or chest oppression. GASTROINTESTINAL: The patient denies any nausea or anorexia. Appetite seems to be maintained. GENITOURINARY: Denies any burning on urination. MUSCULOSKELETAL: The patient has pain, mostly in the left knee. The left leg is edematous and the left knee is tender. The patient also has some lumbar pain. She had previous surgery to the lumbar spine. Right knee has no swelling. ENDOCRINE: Negative. HEMATOLOGIC: The patient denies any prolonged bleeding history. The patient, however, is known to be anemic, as well as a low platelet count. The duration of this problem is unknown. We do not have any records from the family physician, as well as records from the previous Bonding Machine Operator/Oncologist, Dr. Rodríguez. PSYCHIATRIC: Affect appears to be normal. PHYSICAL EXAMINATION: GENERAL: We have a 71 year old female who looks older than her chronological age. She is alert, oriented and answers questions correctly. Not dyspneic, nor tachypneic, but pale. HEAD: Unremarkable. FACE: Symmetrical and equal with no cyanosis and no facial weakness. There is no remarkable tenderness to palpation under pressure on the frontal or maxillary sinus areas. EYES: Pupils equal/reactive to light. Conjunctivae not pale. Sclerae not icteric. MOUTH: Unremarkable. THROAT: No inflammation, tumors or exudate. NECK: No masses. No bruit. No tenderness. No rigidity. CHEST: Asymmetrical with the absence of the right breast. No significant tenderness to palpation. LUNGS: Breath sounds are diminished in both sides with rales at the bases. No expiratory wheezing. HEART: Audible and regular, probably pacemaker driven. No murmurs. ABDOMEN: Slightly protuberant, tympanitic, soft with active bowel sounds. No bruit. LOWER EXTREMITIES: The left leg is edematous including the left knee. Anterior tibials are present, but the posterior tibials are absent. UPPER EXTREMITIES: Symmetrical and equal. ASSESSMENT: 1. PANCYTOPENIA, SEVERE 2. RECURRENT FALLS TIME TWO, SUNDAY AND WEDNESDAY 07/12 AND 07/13/16, RESPECTIVELY 3. MARKEDLY SWOLLEN LEFT LOWER EXTREMITY WITH PAIN IN LEFT KNEE 4. HISTORY OF ANEMIA AND THROMBOCYTOPENIA 5. HISTORY OF BREAST CARCINOMA, RIGHT 6. HISTORY OF ATRIAL FIBRILLATION WITH A PERMANENT PACER 7. HISTORY OF RIGHT TOTAL KNEE REPLACEMENT 8. HISTORY OF RIGHT SHOULDER REPLACEMENT 9. HISTORY OF GERD 10. HISTORY OF MIGRAINES 11. HISTORY OF DEPRESSION 12. HISTORY OF OSTEOARTHRITIS 13. HISTORY OF ANXIETY 14. HISTORY OF LUMBAR DISC DISEASE, POST SURGERY MTDD
--- NOTE | 2016-07-18 11:04 | DS ---
PATIENT IDENTIFICATION: 71 year old female was admitted to [facility] after a fall. She fell 07/12/16 about 9 a.m. She was trying to put her trousers on and slid from her couch and rolled over and landed face down. She was sent at [facility] emergency room and imaging studies were done. It included CT scan of the left lower extremity showing a hemarthrosis of the left knee. Chest x-ray with some chronic changes, but nothing acute and cervical spine CT showing no fracture. She was seen at [facility] ER 07/13/16 after she landed on her buttocks and had x-rays of the pelvis and lumbar spine, CT and both were negative and was then discharged. She came back on 07/13/16 in the evening hours at [facility] emergency room. Emergency room physician did call me with regards to this patient and wanting admission. He had not done any work-up , except a CBC and chemistry. There were no other x-rays. I did ask for a CT of the head, just to make sure that there is not any subdural hematoma from two days ago. HOSPITAL COURSE: This patient was getting IV fluids and electrolytes. The patient's stamina had improved, but her pancytopenia has progressed downwards. Her absolute neutrophil is 500. I discussed the case with the oncologist who took over Dr. Rodríguez and Dr. Renteria. His name is Dr. Chapa. He told me that if I could not transfer the patient tonight that he will see the patient Sunday at the office. I tried to talk to [facility] and Tamanna answered and connected me to Dr. Oshea and discussed the case and they accepted the patient to his services and this patient will be transferred to [facility] under his services. The son, Mr. Chauhan, was notified with regards to the transfer and also the patient was advised about the transfer. I had talked to the son earlier and did advise him that I am looking for a place to transfer his mother. The patient's vital signs were stable at the time of transfer and she was alert and oriented and not dyspneic, nor tachypneic. LUNGS: Still has diminished breath sounds in both sides and still has rales at the bases with no wheezing. HEART: Mostly normal sinus rhythm. ABDOMEN: Soft and somewhat protuberant, nontender. LOWER EXTREMITIES: The left leg is smaller than yesterday. The anterior tibials are still palpable. The patient will be transferred via ambulance to [facility] under Dr. Oshea' s services. FINAL DIAGNOSES: 1. LEFT LATERAL TIBIAL PLATEAU FRACTURE KNEE 2. 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 HISTORY OF ATRIAL FIBRILLATION WITH A PACEMAKER 4. HISTORY OF LUMBAR SURGERY 5. HISTORY OF RIGHT TOTAL KNEE REPLACEMENT 6. HISTORY OF ANEMIA AND THROMBOCYTOPENIA MANAGED BY PRIMARY PROVIDER ACCORDING TO THE SON 7. RIGHT SHOULDER REPLACEMENT BY HISTORY 8. HISTORY OF DEPRESSION AND ANXIETY 9. HISTORY OF GERD MTDD
== END 2016-07-15 20:23 | disposition short-term general hospital (02) | DRG 563 ==
LOC: ED 18:13 → MEDSURG B 23:29
PROVIDERS: ADMIT General Practice; ATTEND General Practice
DX: S82.145A Nondisplaced bicondylar fracture of left tibia, initial encounter for closed fracture (principal); D61.818 Other pancytopenia; C94.6 Myelodysplastic disease, not elsewhere classified; C95.90 Leukemia, unspecified not having achieved remission; D64.9 Anemia, unspecified; I48.91 Unspecified atrial fibrillation; R60.0 Localized edema; D69.6 Thrombocytopenia, unspecified; M54.5 Low back pain; R53.1 Weakness; M25.511 Pain in right shoulder; M17.12 Unilateral primary osteoarthritis, left knee; I67.2 Cerebral atherosclerosis; R29.6 Repeated falls; F41.8 Other specified anxiety disorders; K21.9 Gastro-esophageal reflux disease without esophagitis; W19.XXXA Unspecified fall, initial encounter; Z95.0 Presence of cardiac pacemaker; Z96.651 Presence of right artificial knee joint; Z96.611 Presence of right artificial shoulder joint; Z79.899 Other long term (current) drug therapy
CPT/HCPCS: 36415; 80048; 80053; 81001; 82550; 82652; 83880; 84484; 85025; 93005; 93010; 99223; 99232; 99239; 99283; 99284

== ENCOUNTER 2016-07-15 20:25 | Outpatient (CLI) ==
[2016-07-14 00:34] VITALS: BMI 25.7
== END 2016-07-15 20:26 | disposition home or self-care (01) ==
LOC: AMBL 20:25
PROVIDERS: ATTEND Emergency Medicine
DX: S82.142A Displaced bicondylar fracture of left tibia, initial encounter for closed fracture (principal); D61.818 Other pancytopenia; R29.6 Repeated falls; W19.XXXA Unspecified fall, initial encounter

== ENCOUNTER 2016-08-18 16:06 | Emergency (ER) ==
[2016-08-18 16:18] VITALS: TEMP 98.4; BMI 25.4
[2016-08-18 16:41] LABS: BASOPHILS % (AUTO) 0.6 % (0.0-3.0); HEMATOCRIT 33.6 % (37.0-47.0); HEMOGLOBIN 11.2 g/dl (12.0-16.0); LYMPHOCYTES # (AUTO) 0.9 K/uL (0.60-3.4); MEAN CORPUSCULAR HEMOGLOBIN 30.4 pg (27.0-31.0); MEAN CORPUSCULAR HGB CONC 33.3 (31.8-35.4); MEAN CORPUSCULAR VOLUME 91.1 fl (81.0-99.0); MONOCYTES # (AUTO) 0.2 K/uL (0.4-2.0); MONOCYTES % (AUTO) 9.1 (0-10); NEUTROPHILS # (AUTO) 0.7 K/ul (2.0-6.9); NEUTROPHILS % (AUTO) 38.3; PLATELET COUNT 50 10^3/uL (140-440); RED BLOOD COUNT 3.69 10^6/ul (4.20-5.40)
--- NOTE | 2016-08-18 16:47 | DI ---
EXAM: Single frontal view of the chest HISTORY: Cough. COMPARISON: Chest x-ray 07/13/2069 FINDINGS: Cardiomediastinal silhouette is unchanged and mildly enlarged with stable cardiac lead wir es. There is no pneumothorax. There is minimal blunting the costophrenic angles and stable mild el evation of left hemidiaphragm. The osseous structures demonstrate right shoulder arthroplasty. IMPRESSION: 1. No acute cardiopulmonary process with stable elevation of the left hemidiaphragm. 2. No change in mild cardiomegaly and right shoulder arthroplasty.
[2016-08-18 16:49] LABS: WHITE BLOOD COUNT 1.75 K/ul (4.6-10.2)
[2016-08-18 16:59] LABS: ALBUMIN 3.1 g/dL (3.4-5.0); ALBUMIN/GLOBULIN RATIO 0.84; ANION GAP 11.9; BILIRUBIN,TOTAL 0.43 mg/dL (0.00-1.20); BUN/CREATININE RATIO 12.5; CALCIUM 9.4 mg/dL (8.2-10.2); CREATININE 1.2 mg/dL (0.60-1.30); POTASSIUM 3.9 mmol/L (3.5-5.10); TOTAL PROTEIN 6.8 g/dL (5.8-8.1)
--- NOTE | 2016-08-18 17:29 | ED.PDOC ---
General ED Provider: Dr. 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 Symptoms Are: Still present Episodes Lasting: Seconds Initial Severity: Mild Current Severity: Mild Location of Pain: no Associated Signs and Symptoms: Denies: Decreased responsiveness, Confusion, Agitation, Dizziness, Weakness, Syncope, Headache, Short of air, Cough, Wheezing , Hemoptysis, Chest pain, Palpitations, Edema, Nausea, Vomiting, Diarrhea, Abdominal pain, Back pain, Dysuria, Hematemesis, Melena, Decreased oral intake, Fever, Diaphoresis, Immunocompromised, Anticoagulation Therapy, Recent medication changes, 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 Quality Indicators for AMI: EKG in 10min. Review of Systems - Review Of Systems Constitutional: Reports: No symptoms Eyes: Reports: No symptoms Ears, Nose, Mouth, Throat: Reports: No symptoms Respiratory: Reports: No symptoms Cardiac: Reports: No symptoms GI: Reports: No symptoms : Reports: No symptoms Musculoskeletal: Reports: No symptoms Skin: Reports: No symptoms Neurological: Reports: No symptoms Endocrine: Reports: No symptoms Hematologic/Lymphatic: Reports: No symptoms All Other Systems: Reviewed and Negative Past Medical History - Past Medical History Previously Healthy: No Endocrine: Reports: None Cardiovascular: Reports: Hypertension Respiratory: Reports: None Hematological: Reports: None Gastrointestinal: Reports: None Genitourinary: Reports: None Neuro/Psych: Reports: None Musculoskeletal: Reports: Arthritis, Back Pain Cancer: Reports: None Last Menstrual Period: unknow - Surgical History General Surgical History: Reports: Pacemaker, Orthopedic (Right knee and Right shoulder replacement.), Back Surgery - Family History Family History: Reports: None - Social History Smoking Status: Never smoker Hx Substance Use: No Alcohol Screening: None - Immunizations Tetanus Shot up to Date: No Physical Exam - Physical Exam Appearance: Well-appearing, No pain distress, Well-nourished Eyes: KAYLEEN, EOMI, Conjunctiva clear ENT: Ears normal, Nose normal, Oropharynx normal Respiratory: Airway patent, Breath sounds clear, Breath sounds equal, Respirations nonlabored Cardiovascular: RRR, Pulses normal, No rub, No murmur GI/: Soft, Nontender, No masses, Bowel sounds normal, No Organomegaly Musculoskeletal: Normal strength, ROM intact, No edema, No calf tenderness Skin: Warm, Dry, Normal color Neurological: Sensation intact, Motor intact, Reflexes intact, Cranial nerves intact, Alert, Oriented Psychiatric: Affect appropriate, Mood appropriate Critical Care Note - Critical Care Note Total Time (mins): 0 Course - Course Hematology/Chemistry: 08/18/16 16:24 08/18/16 16:24 Orders, Labs, Meds: Lab Review 08/18/16 16:24 WBC 1.75 L* RBC 3.69 L Hgb 11.2 L Hct 33.6 L MCV 91.1 MCH 30.4 MCHC 33.3 RDW Coeff of Trudy 13.9 Plt Count 50 L Immature Gran % (Auto) 0.0 Neut % (Auto) 38.3 Lymph % (Auto) 52.0 H [place] % (Auto) 9.1 Eos % (Auto) 0.0 Baso % (Auto) 0.6 Immature Gran # (Auto) 0.0 Neut # 0.7 L Lymph # 0.9 [place] # 0.2 L Eos # 0.0 Baso # 0.0 Sodium 139 Potassium 3.9 Chloride 107 Carbon Dioxide 24 Anion Gap 11.9 BUN 15 Creatinine 1.20 Estimated GFR (MDRD) 44.00 BUN/Creatinine Ratio 12.50 Glucose 93 Lactic Acid 19.0 Calcium 9.4 Total Bilirubin 0.43 AST 27 ALT 18 Alkaline Phosphatase 89 Total Protein 6.8 Albumin 3.1 L Globulin 3.7 Albumin/Globulin Ratio 0.84 Orders Category Date Time Status EKG-(ED ONLY) Stat CARDIO 08/18/16 16:30 Completed BLOOD CULTURE Stat LAB 08/18/16 16:24 Received CBC W/ AUTO DIFF Stat LAB 03/03/17 16:24 Completed COMPREHENSIVE METABOLIC PANEL Stat LAB 08/18/16 16:24 Completed LACTIC ACID Stat LAB 08/18/16 16:24 Completed CHEST, 1V AP ONLY Stat RADS 08/18/16 16:09 Completed Vital Signs: Temp Pulse Resp BP Pulse Ox 08/18/16 16:12 98.4 F 76 20 92/56 L 100 Departure - Departure Time of Disposition: 17:29 (in june her WBC WAS EVER LOWER , PANCYTOPENIA DISCUSSED WITH PT STRESSED HEMATLOGIST FOLLOW UP) Disposition: HOME SELF-CARE Discharge Problem: Pancytopenia Instructions: Anemia (ED), Neutropenia (ED), Thrombocytopenia (ED) Condition: Good Pt referred to PMD for follow-up: No Additional Instructions: Please call your Family Physician as soon as possible to schedule a follow-up appointment. YOU HAVE EVIDENCE OF BONE MARROW FAILURE . THIS MAY BE DUE TO CANCER OTHER SERIOUS DISEASES YOU MUST SEE YOUR DOCTOR SOON POSSIBLE. IF YOU PUT THIS OFF YOU CAN SERIOUSLY GET ILL OR EVEN PLEASE SEE YOUR DOCTOR SOON POSSIBLE Allergies/Adverse Reactions: Allergies heparin Allergy (Severe, Verified 08/18/16 16:29) fever codeine Adverse Reaction (Verified 08/18/16 16:29) lisinopril Adverse Reaction (Verified 08/18/16 16:29) Sulfa (Sulfonamide Antibiotics) Adverse Reaction (Verified 08/18/16 16:29) Home Medications: Ambulatory Orders Carvedilol 3.125 mg PO BID 01/29/15 Escitalopram Oxalate [Lexapro] 10 mg PO BEDTIME 01/29/15 Losartan Potassium [Cozaar] 50 mg PO BID 01/29/15 Amitriptyline HCl 10 mg PO QPM 07/13/16 Diazepam 2 mg PO BID 07/13/16 Furosemide [Lasix] 20 mg PO DAILY 07/13/16 Hydrocodone Bit/Acetaminophen [[place] 5-325] 5 - 325 mg PO TID PRN 07/13/16 Hydroxychloroquine Sulfate [Plaquenil] 200 mg PO BID 07/13/16 Hydroxyzine HCl 25 mg PO DAILY PRN 07/13/16 Spironolactone 12.5 mg PO DAILY 07/13/16 Folic Acid 1 mg PO DAILY 08/18/16 Methotrexate Sodium [Methotrexate] 2.5 mg PO DAILY 08/18/16
[2016-08-18 17:35] VITALS: BP 104/68
== END 2016-08-18 18:37 | disposition home or self-care (01) ==
LOC: ED 16:06
DX: D61.818 Other pancytopenia (principal); D64.9 Anemia, unspecified; D70.9 Neutropenia, unspecified; D69.6 Thrombocytopenia, unspecified; Z95.0 Presence of cardiac pacemaker; Z79.899 Other long term (current) drug therapy
CPT/HCPCS: 36415; 80053; 83605; 85025; 87040; 93005; 93010; 99283

== ENCOUNTER 2016-09-21 15:53 | Outpatient (CLI) ==
--- NOTE | 2016-09-21 17:05 | DEXA ---
EXAM: DEXA scan. HISTORY: Osteoporosis. COMPARISON: 02/12/2013. TECHNIQUE: [employer] [id number]. DEXA scan hips performed. Quality of the study is good. BMD is 0.514 grams per square centimeter. T-score -3.9. Z-score -2.3. DEXA scan lumbar spine not performed due to prior surgery. IMPRESSION: According to the World Health Organization classification, hip bone mineral density demonstrates ost eoporosis, with high fracture risk. Ten-year major osteoporotic fracture risk is 39.3%. Ten-year h ip fracture risk is 16%. Since the prior study, hip mineralization has decreased.
== END 2016-09-21 15:54 | disposition home or self-care (01) ==
LOC: RAD 15:53
PROVIDERS: ATTEND Family Medicine
DX: M81.0 Age-related osteoporosis without current pathological fracture (principal)

== ENCOUNTER 2016-09-29 08:51 | Outpatient (CLI) | payer OTHER ==
[2016-09-29] MEDS: VENOFER 200 MG in SODIUM CHLORIDE 100 ML IV ONE (10:15)
[2016-09-29 10:38] LABS: CREATININE 0.96 mg/dL (0.60-1.30)
[2016-09-29 11:44] VITALS: BP 106/66; TEMP 98
[2016-09-29] MEDS: RECLAST 5 MG/100 ML SOLUTION 5 MG in PREMIX INFUSION 100 ML VIAL 1 VIAL IV ONE (11:45)
== END 2016-09-29 08:52 | disposition home or self-care (01) ==
LOC: OPMED 08:51
PROVIDERS: ATTEND Family Medicine
DX: N18.3 Chronic kidney disease, stage 3 (moderate) (principal); D63.1 Anemia in chronic kidney disease; M81.0 Age-related osteoporosis without current pathological fracture
CPT/HCPCS: 36415; 82310; 82565; 84520; 96365; 96367

== ENCOUNTER 2016-11-02 04:38 | Outpatient (CLI) | payer OTHER | END 2016-11-02 04:39 | disposition home or self-care (01) | LOC: AMBL 04:38 | PROVIDERS: ATTEND Family Medicine | DX: R53.1 Weakness (principal); W19.XXXA Unspecified fall, initial encounter ==

== ENCOUNTER 2017-01-28 11:22 | Emergency (ER) ==
[2017-01-28 11:34] VITALS: BP 134/77; TEMP 97.8; BMI 25.9
[2017-01-28] MEDS ORDERED: BENADRYL IM STA (11:47)
[2017-01-28] MEDS ORDERED: DECADRON 4 MG/ML SDV IM STA (11:47)
--- NOTE | 2017-01-28 11:49 | ED.PDOC ---
General ED Provider: Dr. LILLIE SHELTON Chief Complaint: Rash Stated Complaint: rash puritic Time Seen by Physician: 11:30 Mode of Arrival: Walk-In Information Source: Patient Exam Limitations: No limitations Primary Care Provider: MARKIE HOLT Nursing and Triage Documentation Reviewed and Agree: Yes Skin Complaint Exam - Skin Rash/Itching Complaint/Exam Symptoms Are: Still present Initial Severity: Mild Current Severity: Mild Potential Exposures: Reports: Unknown Aggravating: Reports: None Alleviating: Reports: None Associated Signs and Symptoms: Denies: Difficulty breathing, Fever, Chills Related History: Similar episode Skin Findings: Present: Maculae, Papules Differential Diagnoses: Allergic Reaction Review of Systems - Review Of Systems Constitutional: Reports: No symptoms Eyes: Reports: No symptoms Ears, Nose, Mouth, Throat: Reports: No symptoms Respiratory: Reports: No symptoms Cardiac: Reports: No symptoms GI: Reports: No symptoms : Reports: No symptoms Musculoskeletal: Reports: No symptoms Skin: Reports: Rash Neurological: Reports: No symptoms Endocrine: Reports: No symptoms Hematologic/Lymphatic: Reports: No symptoms All Other Systems: Reviewed and Negative Past Medical History - Past Medical History Previously Healthy: No Endocrine: Reports: None Cardiovascular: Reports: Hypertension Respiratory: Reports: None Hematological: Reports: None Gastrointestinal: Reports: None Genitourinary: Reports: None Neuro/Psych: Reports: None Musculoskeletal: Reports: Arthritis, Back Pain Cancer: Reports: None Last Menstrual Period: unknown - Surgical History General Surgical History: Reports: Pacemaker, Orthopedic (Right knee and Right shoulder replacement.), Back Surgery - Family History Family History: Reports: None - Social History Smoking Status: Never smoker Hx Substance Use: No Alcohol Screening: None Physical Exam - Physical Exam Appearance: Well-appearing, No pain distress, Well-nourished Eyes: KAYLEEN, EOMI, Conjunctiva clear ENT: Ears normal, Nose normal, Oropharynx normal Respiratory: Airway patent, Breath sounds clear, Breath sounds equal, Respirations nonlabored Cardiovascular: RRR, Pulses normal, No rub, No murmur GI/: Soft, Nontender, No masses, Bowel sounds normal, No Organomegaly Musculoskeletal: Normal strength, ROM intact, No edema, No calf tenderness Skin: Warm, Dry (rash chest, back arms legs) Neurological: Sensation intact, Motor intact, Reflexes intact, Cranial nerves intact, Alert, Oriented Psychiatric: Affect appropriate, Mood appropriate Critical Care Note - Critical Care Note Total Time (mins): 0 Course - Course Orders, Labs, Meds: Orders Category Date Time Status Dexamethasone 4 mg/ml Inj [Decadron 4 mg/ml Sdv] MEDS 01/28/17 11:47 Stat 4 mg IM ONCE STA Diphenhydramine Inj [Benadryl] MEDS 01/28/17 11:47 Stat 25 mg IM ONCE STA Medications Generic Name Dose Route Start Last Admin Trade Name Freq PRN Reason Stop Dose Admin Dexamethasone Sodium Phosphate 4 mg 01/28/17 11:47 Decadron 4 Mg/Ml Sdv IM 01/28/17 11:48 ONCE STA Diphenhydramine HCl 25 mg 01/28/17 11:47 Benadryl IM 01/28/17 11:48 ONCE STA Vital Signs: Temp Pulse Resp BP Pulse Ox 01/28/17 11:23 97.8 F 84 24 134/77 98 Departure - Departure Time of Disposition: 11:49 Disposition: HOME SELF-CARE Discharge Problem: Pruritic rash Instructions: Acute Rash (ED) Condition: Good Pt referred to PMD for follow-up: Yes Allergies/Adverse Reactions: Allergies heparin Allergy (Severe, Verified 08/18/16 16:29) fever codeine Adverse Reaction (Verified 08/18/16 16:29) lisinopril Adverse Reaction (Verified 08/18/16 16:29) Sulfa (Sulfonamide Antibiotics) Adverse Reaction (Verified 08/18/16 16:29) Home Medications: Ambulatory Orders Carvedilol 3.125 mg PO BID 01/29/15 Escitalopram Oxalate [Lexapro] 10 mg PO BEDTIME 01/29/15 Losartan Potassium [Cozaar] 50 mg PO BID 01/29/15 Amitriptyline HCl 10 mg PO QPM 07/13/16 Diazepam 2 mg PO BID 07/13/16 Furosemide [Lasix] 20 mg PO DAILY 07/13/16 Hydrocodone Bit/Acetaminophen [Haines 5-325] 5 - 325 mg PO TID PRN 07/13/16 Hydroxychloroquine Sulfate [Plaquenil] 200 mg PO BID 07/13/16 Spironolactone 12.5 mg PO DAILY 07/13/16 Folic Acid 1 mg PO DAILY 08/18/16
== END 2017-01-28 12:45 | disposition home or self-care (01) ==
LOC: ED 11:22
DX: R21 Rash and other nonspecific skin eruption (principal); L29.9 Pruritus, unspecified
CPT/HCPCS: 96372; 99282

== ENCOUNTER 2017-04-24 08:03 | Outpatient (CLI) | END 2017-04-24 08:04 | disposition short-term general hospital (02) | LOC: AMBL 08:03 | PROVIDERS: ATTEND Internal Medicine | DX: R07.89 Other chest pain (principal); M25.552 Pain in left hip; M79.605 Pain in left leg; W01.0XXA Fall on same level from slipping, tripping and stumbling without subsequent striking against object, initial encounter ==

== ENCOUNTER 2017-05-16 10:04 | Outpatient (RCR) ==
--- NOTE | 2017-05-16 15:10 | RS.OPPTEV2 ---
Date of Note: 05/16/17 Visit #: 1 Date of Evaluation: 05/16/17 Payer Source: MEDICARE Date of Onset/Injury/Change in Status: 04/26/17 (fall at home) Treatment Diagnosis: Right shoulder pain History of Condition/Mechanism of Injury:: pt suffered a fall on 04/26/17 catching the rear wheel of her rollator on the door facing causing her to fall backward. Prior Level of Function.....Patient was independent with: ADL's, Self Care, Ambulation/Mobility, Community Integration/Access Functional Limitations: Self Care, ADL's, Reaching, Pushing, Pulling, Lifting, Carrying, Community Access/Integration Current Subjective/complaints:: pt c/o pain in her ribs and L 5th finger due to fx. pt also reports she is getting around " a little better". pt reports she has help at home a few hours a day. pt states she has a shower chair and grab bars in bathroom and has lifeline. Treatment Side (optional): Left *Precautions: ALLERGIC TO ADHESIVE Medical History Medical History: Hypertension, Arthritis, Cancer Medical History Comments:: Rheumatoid, osteoarthritis, breast CA Surgical History: Knee Replacement Surgical History Comments:: Pacemaker, Right shoulder surgery, back surgery, stomach repair Smoking Status: Never smoker Hx Home Medications: Hydrocodone, Prednisone, alendronate, calcium-vit D, carvedilol, ferrous sulfate, hydroxychloroquine, hydroxyzine, lasix, lexapro, losartan, norvasc, oxybutynin, spironolactone, ultram, zantac Patient's Goals: be stronger Pain Assessment - Pain Description Pain Location: back and ribs Pain Description: Sharp, Aching Current Pain Intensity: 5 Other Comments regarding Pain:: pain increases with movement. Functional Outcome Measure Tinetti: 17 (41) - G Codes & Severity Modifier G Codes & Modifier: mobility current CK. mobility goal CI Source of G Code score: tinetti score Observation - Observation Posture: Forward Head, Rounded Shoulders, Increased Thoracic Kyphosis Handedness: Right Gait - Gait Pattern General Gait Pattern Observation: Crouched Gait, Decrease Stride Lngth (R), Decrease Stride Lngth (L) General Range of Motion: BLE WFL's. BUE WFL's ( BUE hands present with ulnar drift) Muscle Strength: RLE grossly 4/5. LLE hip flex 4/5, knee flex/ext 4-/5, ankle DF/PF 4/5 Sensation - Sensation Right Upper Extremity: Impaired Left Upper Extremity: Impaired Left Lower Extremity: Impaired Sensation Description: Paresthesia Balance - Sitting Balance Static Sitting Balance: Good Dynamic Sitting Balance: Good - Standing Balance Static Standing Balance: Good Dynamic Standing Balance: Fair - Comments Balance Assessment Comments: TUG 31 secs,. 30 sec sit/stand: 6 x ub 30 secs Interventions - Exercise/Activities/Manual Therapy Exercises/Activities: NA Manual Therapy: NA HOME EXERCISE PROGRAM: pt given written HEP including AP, LAQ, seated hip flex, hamstring stretch, scapular retraction, shld circles - Charges Total Direct Minutes: 58 Total Treatment Time: 58 Procedures billed for this date of service:: eval Assessment Assessment: pt presents with decreased strength, balance, as well as decreased gait ability resulting in fall at home. Feel pt would benefit from skilled PT for therex for LE strengthening and dyn balance. Patient Education: Home Exercise Program, Home Safety, Education of Plan of Care Rehab Potential: Good Short Term Goals Goal #1: pt amb in dept with rwx with improved posture, no LOB Goal to be met by: 05/30/17 Goal #2: pt rate pain < 5/10 with activity Goal to be met by: 05/30/17 Goal #3: pt demonstrate improved dyn stand balance as noted by TUG< 30 secs Goal to be met by: 05/30/17 Label Tacker Goals Goal #1: pt with improved BLE strength 4 to 4+/5 and independent with HEP Goal to be met by: 06/15/17 Goal #2: pt with improved dyn stand balance as noted by increase tinetti score Goal to be met by: 06/15/17 Goal #3: pt amb functional distances with rwx with no LOB with improved step length. Goal to be met by: 06/15/17 Goal #4: pt to rate pain <3/10 with activity Goal to be met by: 06/15/17 Plan - Treatment to be Provided Procedures: Therapeutic Exercises, Therapeutic Activity, Gait Training, Manual Therapy, Patient Education Modalities: Cryotherapy, Hot Packs - Treatment Plan Frequency: 2 X week Duration: 4 weeks ORDER # VISITS AND/OR THROUGH DATE: 06/15/17 - Treatment Code (1) Closed nondisplaced fracture of proximal phalanx of finger Code(s): S62.649A - NONDISP FX OF PROXIMAL PHALANX OF UNSP FINGER, INIT Qualifiers: Encounter type: initial encounter Finger: little finger Laterality: left Qualified Code(s): S62.647A - Nondisplaced fracture of proximal phalanx of left little finger, initial encounter for closed fracture (2) Closed fracture of multiple ribs of left side Code(s): S22.42XA - MULTIPLE FRACTURES OF RIBS, LEFT SIDE, INIT FOR CLOS FX Qualifiers: Encounter type: initial encounter Qualified Code(s): S22.42XA - Multiple fractures of ribs, left side, initial encounter for closed fracture (3) Falls Code(s): W19.XXXA - UNSPECIFIED FALL, INITIAL ENCOUNTER Qualifiers: Encounter type: initial encounter Qualified Code(s): W19.XXXA - Unspecified fall, initial encounter
== END 2017-05-17 ==
PROVIDERS: ATTEND Physician Assistant
DX: R29.6 Repeated falls (principal)

== ENCOUNTER 2017-05-24 11:00 | Outpatient (RCR) ==
--- NOTE | 2017-05-18 13:00 | RS.CXNS ---
Date of scheduled appointment: 05/18/17 Type: No Show
--- NOTE | 2017-05-21 13:28 | RS.OPPTDN ---
Subjective Date of Note: 05/21/17 Visit #: 2 Date of Evaluation: 05/16/17 Payer Source: MEDICARE Treatment Diagnosis: Right shoulder pain Current Subjective/complaints:: Patient reports she is working on her HEP and has "done all these before". States she does have a problem with her balance and hopes therapy will help. Patient is without her rollator walker, states she forgot it due to the bus arriving unexpectedly. *Precautions: ALLERGIC TO ADHESIVE Pain Assessment - Pain Description Pain Location: Right shoulder, left ribs, left knee Current Pain Intensity: does not rate on scale Other Comments regarding Pain:: Reports increased discomfort with some exercises. Interventions - Exercise/Activities/Manual Therapy Exercises/Activities: In sitting, LAQ 2#, AP, and hip flexion all 2s/10reps. Wand for bilateral shoulder flexion and yellow theraband for scapular retraction , 2s/10reps each. In supine, SLR, isometric hip add, and hip abd. 2# to each ankle for alt hip flexion and SAQ, 2s/10reps. In standing, alternate hip abd, marching and alternate hip extension. Reviewed safety with ambulation as patient is assisted back to waiting room and then onto bus. Total minutes of Exercise: 25mins Manual Therapy: NA HOME EXERCISE PROGRAM: pt given written HEP including AP, LAQ, seated hip flex, hamstring stretch, scapular retraction, shld circles - Charges Timed Code Treatment Minutes: 25mins Total Treatment Time: 30mins Procedures billed for this date of service:: EX2 Assessment: Patient appears to be motivated to work on HEP. Patients safety awareness may be limited. Patient Education: Body/Joint mechanics, Home Exercise Program, Home Safety, Activity Modification Comments: Extensive patient education on safety and advised patient to use walker in community. Patient demonstrates compliance with HEP?: Yes Short Term Goals Goal #1: pt amb in dept with rwx with improved posture, no LOB Goal to be met by: 05/30/17 Goal #2: pt rate pain < 5/10 with activity Goal to be met by: 05/30/17 Goal #3: pt demonstrate improved dyn stand balance as noted by TUG< 30 secs Goal to be met by: 05/30/17 [facility] Goals Goal #1: pt with improved BLE strength 4 to 4+/5 and independent with HEP Goal to be met by: 06/15/17 Goal #2: pt with improved dyn stand balance as noted by increase tinetti score Goal to be met by: 06/15/17 Goal #3: pt amb functional distances with rwx with no LOB with improved step length. Goal to be met by: 06/15/17 Goal #4: pt to rate pain <3/10 with activity Goal to be met by: 06/15/17 Plan PLAN OF CARE EXPIRES ON:: 06/15/17 ORDER # VISITS AND/OR THROUGH DATE: 06/15/17 PLAN: See patient again this week to work on strengthening and balance, as well as education of safety.
--- NOTE | 2017-05-24 12:03 | RS.OPPTDN ---
Subjective Date of Note: 05/24/17 Visit #: 3 Date of Evaluation: 05/16/17 Payer Source: MEDICARE Treatment Diagnosis: Right shoulder pain Current Subjective/complaints:: Patient reports no change in her functional activities. States she is doing her HEP and has done most of them before. States she feels she can stop PT at this time and just work on HEP. *Precautions: ALLERGIC TO ADHESIVE Pain Assessment - Pain Description Current Pain Intensity: does not rate Other Comments regarding Pain:: Reports discomfort through multiple joint due to long history of arthritis. Interventions - Exercise/Activities/Manual Therapy Exercises/Activities: In sitting, LAQ , AP, and hip flexion all 2s/10reps. Wand for bilateral shoulder flexion and green theraband for scapular retraction, 2s/ 10reps each. In supine, SLR, isometric hip add, and hip abd. Alt hip flexion and SAQ, 2s/10reps. Isometric hip flexion. In standing, alternate hip abd, toe- ups, marching and alternate hip extension. Reviewed safety with ambulation with rollator walker and patient is assisted back to waiting room to wait for bus. Total minutes of Exercise: 25mins Manual Therapy: NA HOME EXERCISE PROGRAM: pt given written HEP including AP, LAQ, seated hip flex, hamstring stretch, scapular retraction, shld circles, wand for shoulder flexion and chest press. Isometric hip add and isometric hip flexion. - Objective Findings Observations,measurements,etc.: FOM not reassessed due to patient being adamant there is not change in functional activity. - Charges Timed Code Treatment Minutes: 25mins Total Treatment Time: 30mins Procedures billed for this date of service:: EX2 Assessment: Patient independent with HEP but does not see any improvement in functional activities at this time. She requests discharge and will continue HEP. Patient Education: Home Exercise Program, Home Safety, Activity Modification Patient demonstrates compliance with HEP?: Yes Short Term Goals Goal #1: pt amb in dept with rwx with improved posture, no LOB Goal to be met by: 05/30/17 Progress towards Goal:: Met Goal #2: pt rate pain < 5/10 with activity Goal to be met by: 05/30/17 Progress towards Goal:: No Change Goal #3: pt demonstrate improved dyn stand balance as noted by TUG< 30 secs Goal to be met by: 05/30/17 Group Home Goals Goal #1: pt with improved BLE strength 4 to 4+/5 and independent with HEP Goal to be met by: 06/15/17 Progress towards goal: Progressing Goal #2: pt with improved dyn stand balance as noted by increase tinetti score Goal to be met by: 06/15/17 Progress towards goal: No Change Goal #3: pt amb functional distances with rwx with no LOB with improved step length. Goal to be met by: 06/15/17 Progress towards goal: Progressing Goal #4: pt to rate pain <3/10 with activity Goal to be met by: 06/15/17 Plan PLAN OF CARE EXPIRES ON:: 06/15/17 ORDER # VISITS AND/OR THROUGH DATE: 06/15/17 PLAN: Discharge with HEP at patient request.
--- NOTE | 2017-05-25 11:47 | RS.OPPTDC ---
Date of Discharge: 05/24/17 Date of Evaluation: 05/16/17 Number of Visits: 3 Treatment Diagnosis: Right shoulder pain Current Level of Function: pt consistently reports no change in function. Current Complaints/Gains: pt states she has done most of the ex's before and can continue at home. pt requests to be d/c from PT Functional Outcome Measure Other: not reassess pt is adamant there has been no change in her functional ability - G Codes & Severity Modifier G Codes & Modifier: mobility goal CI. mobility dc CK Source of G Code score: previos functional assessment and pt presentation Observation - Observation Posture: Forward Head, Rounded Shoulders Gait - Gait Pattern General Gait Pattern Observation: Crouched Gait, Decrease Stride Lngth (R), Decrease Stride Lngth (L) General Range of Motion: WFL's except for hands due to arthritic deformities. Muscle Strength: grossly 4- to 4/5 Interventions - Exercise/Activities/Manual Therapy Exercises/Activities: n/a Manual Therapy: NA HOME EXERCISE PROGRAM: pt given written HEP including AP, LAQ, seated hip flex, hamstring stretch, scapular retraction, shld circles, wand for shoulder flexion and chest press. Isometric hip add and isometric hip flexion. - Charges Timed Code Treatment Minutes: n/a Total Treatment Time: n/a Procedures billed for this date of service:: n/a Assessment Assessment: pt has met STG 1, otherwise goals not met. pt requests to be dc from PT Patient Education: Education of diagnosis, Home Exercise Program, Activity Modification, Education of Plan of Care Rehab Potential: Good Short Term Goals Goal #1: pt amb in dept with rwx with improved posture, no LOB Goal to be met by: 05/30/17 Progress towards Goal:: Met Goal #2: pt rate pain < 5/10 with activity Goal to be met by: 05/30/17 Progress towards Goal:: No Change Goal #3: pt demonstrate improved dyn stand balance as noted by TUG< 30 secs Goal to be met by: 05/30/17 Progress towards Goal:: No Change Group Home Goals Goal #1: pt with improved BLE strength 4 to 4+/5 and independent with HEP Goal to be met by: 06/15/17 Progress towards goal: Progressing Goal #2: pt with improved dyn stand balance as noted by increase tinetti score Goal to be met by: 06/15/17 Progress towards goal: No Change Goal #3: pt amb functional distances with rwx with no LOB with improved step length. Goal to be met by: 06/15/17 Progress towards goal: Progressing Goal #4: pt to rate pain <3/10 with activity Goal to be met by: 06/15/17 Progress towards goal: No Change Plan Reason for Discharge:: pt request
== END 2017-06-17 ==
PROVIDERS: ATTEND Physician Assistant
DX: R29.6 Repeated falls (principal)

== ENCOUNTER 2017-05-29 13:56 | Outpatient (CLI) ==
--- NOTE | 2017-05-29 14:39 | DI ---
EXAM: Left hand three-view HISTORY: Left fourth and fifth fingers previous fractures COMPARISON: None FINDINGS: The bones are markedly demineralized. Transverse lucency at the base of the fifth proxima l phalanx may represent an age indeterminate fracture. No prior studies available for comparison. Os teoarthritis scattered throughout the hand, moderate to severe. Arthropathy is greatest at the secon d MCP joint where there is associated subluxation. Ulnar deviation of the second and third digits. Remodeling of the distal radius and ulna may be due to old healed fractures. No focal soft tissue ab normality. IMPRESSION: 1. Transverse lucency at the base of the fifth proximal phalanx may represent an age indeterminate f racture. No prior studies available for comparison. 2. Osteoarthritis scattered throughout the hand, moderate to severe. Arthropathy is greatest at the second MCP joint where there is associated subluxation. Ulnar deviation of the second and third dig its. 3. Markedly demineralized bones.
== END 2017-05-29 13:57 | disposition home or self-care (01) ==
LOC: RAD 13:56
PROVIDERS: ATTEND Nurse Practitioner
DX: S62.607D Fracture of unspecified phalanx of left little finger, subsequent encounter for fracture with routine healing (principal); S62.605D Fracture of unspecified phalanx of left ring finger, subsequent encounter for fracture with routine healing

== ENCOUNTER 2017-08-11 11:47 | Outpatient (CLI) | payer OTHER | END 2017-08-11 11:48 | disposition short-term general hospital (02) | LOC: AMBL 11:47 | PROVIDERS: ATTEND Internal Medicine Geriatric Medicine | DX: R41.0 Disorientation, unspecified (principal); R47.9 Unspecified speech disturbances ==

== ENCOUNTER 2017-11-18 20:34 | Emergency (ER) | payer OTHER ==
[2017-11-18 20:42] VITALS: BP 143/86; TEMP 97.7; BMI 27.4
[2017-11-18] MEDS ORDERED: TRANDATE IVP STA (20:56)
[2017-11-18] MEDS ORDERED: CATAPRES PO STA (20:57)
--- NOTE | 2017-11-18 21:27 | CT ---
EXAM: CT Head HISTORY: Elevated blood pressure COMPARISON: 07/13/2016 TECHNIQUE: CT head performed without contrast FINDINGS: There is no mass effect, midline shift, or intracranial hemmorhage. Pinto white differenti ation is preserved. There is no extra-axial collection. The ventricles, sulci, and basal cisterns a re patent and symmetric. There is chronic ischemic disease of the white matter and cerebral volume l oss. Chronic right cerebellar lacunar infarction. There is no depressed calvarial fracture. The mast oid air cells are clear. The visualized paranasal sinuses are clear. There are intracranial atheroscl erotic calcifications. IMPRESSION: 1. No acute intracranial abnormality. 2. Chronic ischemic disease of the white matter and cerebral volume loss. Chronic right cerebellar l acunar infarction.
--- NOTE | 2017-11-18 21:51 | ED.PDOC ---
General ED Provider: Dr. SHILPA LAIRD-ER Chief Complaint: Hypertension Stated Complaint: my bp is up and my nose bled Time Seen by Physician: 21:50 Mode of Arrival: Walk-In Information Source: Patient Exam Limitations: No limitations [facility] Documentation Reviewed and Agree: Yes Reviewed sepsis parameters & appropriate labs ordered?: Yes System Inflammatory Response Syndrome: Not Applicable Sepsis Protocol: For patient's 13 years and over: Temp is 96.8 and below OR 101 and greater Pulse >90 BPM Resp >20/minute Acutely Altered Mental Status Are patient's symptoms suggestive of a new infection, such as: -Pneumonia -Skin, Soft Tissue -Endocarditis -UTI -Bone, Joint Infection -Implantable Device -Acute Abdominal Infection -Wound Infection -Meningitis -Blood Stream Catheter Infection -Unknown Cardiovascular Complaint Exam - Hypertension Complaint/Exam Onset/Duration: today Symptoms Are: Still present Timing: Constant Reported B/P Prior to Arrival: 180/98 Aggravating: Reports: None Alleviating: Reports: None Associated Signs and Symptoms: Reports: Anxiety, Headache. Denies: Chest pain, Vision changes, Recent stress, Numbness, Tingling, Weakness, Dizziness, Short of air, Swelling Recent Change in Medications: No A/V [place]: No Papilledema Present: No JVD Present: No Carotid Bruit Present: No Femoral Pulses Bounding: No Differential Diagnoses: Hypertension, Other Quality Indicator For Non-Traumatic Chest Pain/Syncope: EKG Performed Review of Systems - Review Of Systems Constitutional: Reports: No symptoms Eyes: Reports: No symptoms Ears, Nose, Mouth, Throat: Reports: Epistaxis Respiratory: Reports: No symptoms Cardiac: Reports: No symptoms GI: Reports: No symptoms : Reports: No symptoms Musculoskeletal: Reports: No symptoms Skin: Reports: No symptoms Neurological: Reports: No symptoms Endocrine: Reports: No symptoms Hematologic/Lymphatic: Reports: No symptoms All Other Systems: Reviewed and Negative Past Medical History - Past Medical History Previously Healthy: No Endocrine: Reports: None Cardiovascular: Reports: Hypertension Respiratory: Reports: None Hematological: Reports: None Gastrointestinal: Reports: None Genitourinary: Reports: None Neuro/Psych: Reports: None Musculoskeletal: Reports: Arthritis, Back Pain Cancer: Reports: None Last Menstrual Period: PT HAS HAD A HYSTERECTOMY - Surgical History General Surgical History: Reports: Pacemaker, Orthopedic (Right knee and Right shoulder replacement.), Back Surgery - Family History Family History: Reports: None - Social History Smoking Status: Never smoker Hx Substance Use: No Alcohol Screening: None - Immunizations Tetanus Shot up to Date: Yes Physical Exam - Physical Exam Appearance: Well-appearing, No pain distress, Well-nourished Eyes: KAYLEEN, EOMI, Conjunctiva clear ENT: Ears normal, Nose normal, Oropharynx normal Neck: Supple Respiratory: Airway patent Cardiovascular: RRR, Pulses normal, No rub, No murmur GI/: Soft, Nontender, No masses, Bowel sounds normal, No Organomegaly Musculoskeletal: Normal strength, ROM intact, No edema, No calf tenderness Skin: Warm, Dry, Normal color Neurological: Sensation intact, Motor intact, Reflexes intact, Cranial nerves intact, Alert, Oriented Psychiatric: Affect appropriate, Mood appropriate Interpretation - Radiology Interpretation Radiology Interpretation By: Radiologist Radiology Results: Negative Exam Interpreted: CT Scan - EKG Interpretation Time of EKG #1: 21:51 Rate: Normal Rhythm: Sinus Ectopy: None Chappell: NL ST Segment: Normal Interpretation: nsr Re-Evaluation - Re-Evaluation Time of Re-Evaluation: 21:51 Status: Improved Vital Signs Stable: Yes Pain Level: 0 Appearance: NAD Lungs: Clear Skin: Warm and Dry Neuro: Alert and Oriented X3 CV: RRR Critical Care Note - Critical Care Note Total Time (mins): 0 Course - Course Hematology/Chemistry: 11/18/17 20:50 11/18/17 20:50 Orders, Labs, Meds: Lab Review 11/18/17 11/18/17 11/18/17 20:50 20:50 20:50 WBC 4.30 L RBC 4.13 L Hgb 13.0 Hct 37.5 MCV 90.8 MCH 31.5 H MCHC 34.7 RDW Coeff of Trudy 14.5 Plt Count 52 L Immature Gran % (Auto) 0.2 Neut % (Auto) 57.4 Lymph % (Auto) 26.3 [place] % (Auto) 13.5 H Eos % (Auto) 2.1 Baso % (Auto) 0.5 Immature Gran # (Auto) 0.0 Neut # (Auto) 2.5 Lymph # (Auto) 1.1 [place] # (Auto) 0.6 Eos # (Auto) 0.1 Baso # (Auto) 0.0 PT 11.6 H INR 1.17 Sodium 137 Potassium 3.9 Chloride 106 Carbon Dioxide 23 Anion Gap 11.9 BUN 12 Creatinine 0.93 Estimated GFR (MDRD) 59.00 BUN/Creatinine Ratio 12.90 Glucose 107 Calcium 10.0 Total Bilirubin 0.7 AST 26 ALT 26 Alkaline Phosphatase 56 Total Creatine Kinase 55 Troponin I 0.0240 Total Protein 6.7 Albumin 3.1 L Globulin 3.6 Albumin/Globulin Ratio 0.86 Orders Category Date Time Status EKG-(ED ONLY) Stat CARDIO 11/18/17 20:43 Ordered ED CHRONOMETER TESTER APPLIED .ONCE EMERGENCY 11/18/17 20:42 Active IV [ED IV/MEDIPORT/POWERPORT] .ONCE EMERGENCY 11/18/17 20:56 Active CBC W/ AUTO DIFF Stat LAB 11/18/17 20:50 Completed COMPREHENSIVE METABOLIC PANEL Stat LAB 11/18/17 20:50 Completed CREATINE KINASE Stat LAB 11/18/17 20:50 Completed PT WITH INR Stat LAB 11/18/17 20:50 Completed TROPONIN I Stat LAB 11/18/17 20:50 Completed 0.9 % Sodium Chloride [Saline Flush] MEDS 11/18/17 20:56 Ordered 1 syr IVF PRN PRN Clonidine HCl [Catapres] MEDS 11/18/17 20:57 Discontinued 0.1 mg PO ONCE STA Labetalol HCl [Trandate] MEDS 11/18/17 20:56 Discontinued 20 mg IVP ONCE STA CT HEAD W/O CONTRAST Stat RADS 11/18/17 20:56 Completed Medications Generic Name Dose Route Start Last Admin Trade Name Freq PRN Reason Stop Dose Admin Sodium Chloride 1 syr 11/18/17 20:56 11/18/17 21:15 Saline Flush IVF 1 syr PRN PRN Administration To flush IV Discontinued Medications Generic Name Dose Route Start Last Admin Trade Name Freq PRN Reason Stop Dose Admin Clonidine 0.1 mg 11/18/17 20:57 11/18/17 21:08 Catapres PO 11/18/17 20:58 0.1 mg ONCE STA Administration Labetalol HCl 20 mg 11/18/17 20:56 11/18/17 21:16 Trandate IVP 11/18/17 20:57 20 mg ONCE STA Administration Vital Signs: Temp Pulse Resp BP Pulse Ox 11/18/17 20:35 97.7 F 80 20 143/86 H 97 CHAPO Risk Score CHAPO Risk Score: Risk Score Odds of by 30D 0 0.1 (0.1-0.2) 1 0.3 (0.2-0.3) 2 0.4 (0.3-0.5) 3 0.7 (0.6-0.9) 4 1.2 (1.0-1.5) 5 2.2 (1.9-2.6) 6 3.0 (2.5-3.6) 7 4.8 (3.8-6.1) Departure - Departure Time of Disposition: 21:51 Disposition: HOME SELF-CARE Discharge Problem: Elevated blood pressure reading, Thrombocytopenia Instructions: Thrombocytopenia (ED) Condition: Good Pt referred to PMD for follow-up: Yes IPMP verified?: No Additional Instructions: talk to dr quintana tomorrow about your bp and your low platelets Allergies/Adverse Reactions: Allergies heparin Allergy (Severe, Verified 11/18/17 20:42) fever codeine Adverse Reaction (Verified 11/18/17 20:42) lisinopril Adverse Reaction (Verified 11/18/17 20:42) Sulfa (Sulfonamide Antibiotics) Adverse Reaction (Verified 11/18/17 20:42) Home Medications: Ambulatory Orders Carvedilol 3.125 mg PO BID 01/29/15 Escitalopram Oxalate [Lexapro] 20 mg PO BEDTIME 01/29/15 Losartan Potassium [Cozaar] 50 mg PO BID 01/29/15 Amitriptyline HCl 10 mg PO QPM 07/13/16 Furosemide [Lasix] 20 mg PO DAILY 07/13/16 Hydrocodone Bit/Acetaminophen [[place] 5-325] 5 - 325 mg PO TID PRN 07/13/16 Hydroxychloroquine Sulfate [Plaquenil] 200 mg PO DAILY 07/13/16 Spironolactone 12.5 mg PO DAILY 07/13/16 Prednisone 5 mg PO DAILY tab-cap 03/02/17 Ranitidine HCl 300 mg PO DAILY tab-cap 03/02/17 Disposition Discussed With: Patient
== END 2017-11-18 22:08 | disposition home or self-care (01) ==
LOC: ED 20:34
DX: I10 Essential (primary) hypertension (principal); D69.6 Thrombocytopenia, unspecified; R04.0 Epistaxis; R51 Headache; Z79.899 Other long term (current) drug therapy; Z95.0 Presence of cardiac pacemaker
CPT/HCPCS: 36415; 80053; 82550; 84484; 85025; 85610; 93005; 93010; 96374; 99283